=== PATIENT | female | born 1965 | race Native Hawaiian/Other Pacific Islander ===

== ENCOUNTER 2019-08-09 14:21 | Emergency (ER) | payer OTHER ==
[~2019-08-09] VITALS: Ht 157.5 cm; Wt 65.9 kg
[~2019-08-09 14:21] MED LIST: IBUP-676
[2019-08-09 16:48] VITALS: BP 145/79
== END 2019-08-09 17:47 | disposition home or self-care (01) ==
LOC: EMS 14:23
DX: S09.90XA Unspecified injury of head, initial encounter (principal); Z90.710 Acquired absence of both cervix and uterus; W22.8XXA Striking against or struck by other objects, initial encounter; Y93.89 Activity, other specified; Y92.89 Other specified places as the place of occurrence of the external cause; Y99.8 Other external cause status